=== PATIENT | male | born 1970 | race Caucasian/White ===

== ENCOUNTER 2019-08-17 23:25 | Outpatient (REF) | payer MEDICARE, SELFPAY ==
[2019-08-17 22:57] LABS: Microalb ug/mg Crea 32.6 ug/mg Cr
[2019-08-17 23:15] LABS: ALT 117 U/L (16-63); AST 82 U/L (15-37); Albumin 4.5 g/dL (3.4-5.0); Alkaline Phosphatase 64 U/L (46-116); Anion Gap 11.4 mmol/L (3-11); BUN 12 mg/dL (7-18); Bilirubin, Total 0.6 mg/dL (0.2-1.0); CO2 27.6 mmol/L (21.0-32.0); CREATININE 0.74 mg/dL (0.70-1.30); Calcium 9.7 mg/dL (8.5-10.1); Chloride 101 mmol/L (98-107); Glucose 141 mg/dL (74-106); Potassium 4.4 mmol/L (3.5-5.1); Sodium 140 mmol/L (136-145); Vitamin B12 836 pg/mL (193-986)
[2019-08-18 12:18] LABS: Calculated LDL 60 mg/dL; Cholesterol 152 mg/dL (<200); HDL Cholesterol 42 mg/dL (40-60); Triglyceride 250 mg/dL (<150)
== END 2019-08-17 23:45 ==
LOC: NCHCN 23:25
PROVIDERS: Visit Provider Nurse Practitioner Family
DX: E11.9 Type 2 diabetes mellitus without complications (principal); F10.10 Alcohol abuse, uncomplicated; K76.0 Fatty (change of) liver, not elsewhere classified; E66.9 Obesity, unspecified
CPT/HCPCS: 80053; 80061; 82043; 82570; 82607; 82746

== ENCOUNTER 2020-09-08 15:35 | Outpatient (REF) | payer MEDICARE, SELFPAY ==
[2020-09-08 13:42] LABS: Hemoglobin A1C 7.3 % (<5.7)
[2020-09-08 14:04] LABS: ALT 86 U/L (16-63); AST 39 U/L (15-37); Albumin 4.1 g/dL (3.4-5.0); Alkaline Phosphatase 68 U/L (46-116); BUN 13 mg/dL (7-18); Bilirubin, Total 0.3 mg/dL (0.2-1.0); CREATININE 0.8 mg/dL (0.70-1.30); Calcium 9.1 mg/dL (8.5-10.1); Chloride 100 mmol/L (98-107); Glucose 286 mg/dL (74-106); Potassium 4.3 mmol/L (3.5-5.1); Sodium 136 mmol/L (136-145); Total Protein 7.8 g/dL (6.4-8.2); Vitamin B12 636 pg/mL (193-986)
[2020-09-11 11:54] LABS: Hepatitis C Ab w Rflx HCV PCR Negative (Negative)
== END 2020-09-08 15:55 ==
LOC: NCHCN 15:35
PROVIDERS: Visit Provider Nurse Practitioner Family
DX: E11.9 Type 2 diabetes mellitus without complications (principal); I10 Essential (primary) hypertension; F10.10 Alcohol abuse, uncomplicated; K21.9 Gastro-esophageal reflux disease without esophagitis; Z11.59 Encounter for screening for other viral diseases
CPT/HCPCS: 80053; 86803; 82607; 82746; 83036

== ENCOUNTER 2021-04-05 17:43 | Outpatient (REF) | payer MEDICARE, SELFPAY ==
[2021-04-05 14:29] LABS: Anion Gap 10.9 mmol/L (3-11); BUN 11 mg/dL (7-18); CO2 27.1 mmol/L (21.0-32.0); CREATININE 0.8 mg/dL (0.70-1.30); Calcium 10.1 mg/dL (8.5-10.1); Chloride 104 mmol/L (98-107); Glucose 213 mg/dL (74-106); Potassium 4.4 mmol/L (3.5-5.1); Sodium 142 mmol/L (136-145)
== END 2021-04-05 17:44 | disposition home or self-care (01) ==
LOC: NCHCN 17:43
PROVIDERS: Visit Provider Nurse Practitioner Family
DX: E11.9 Type 2 diabetes mellitus without complications (principal); E66.9 Obesity, unspecified
CPT/HCPCS: 80048

== ENCOUNTER 2022-11-05 16:14 | Outpatient (REF) | payer MEDICARE, SELFPAY ==
[2022-11-05 21:16] LABS: COMMENT (LAB VIEW ONLY) 29.54 mg/dL; Microalb ug/mg Crea 74.8 ug/mg Cr
== END 2022-11-05 16:15 | disposition home or self-care (01) ==
LOC: NCHCN 16:14
PROVIDERS: Visit Provider Nurse Practitioner Family
DX: E11.9 Type 2 diabetes mellitus without complications (principal)
CPT/HCPCS: 82043; 82570

== ENCOUNTER 2023-03-18 08:41 | Outpatient (REF) | payer MEDICARE, SELFPAY ==
[2023-03-18 15:44] LABS: ALT 64 U/L (16-63); AST 25 U/L (15-37); Albumin 3.8 g/dL (3.4-5.0); Alkaline Phosphatase 55 U/L (46-116); Anion Gap 9.1 mmol/L (3-11); BUN 12 mg/dL (7-18); Bilirubin, Total 0.5 mg/dL (0.2-1.0); CO2 25.9 mmol/L (21.0-32.0); CREATININE 0.7 mg/dL (0.70-1.30); Calcium 9.4 mg/dL (8.5-10.1); Calculated LDL 101 mg/dL (<100); Chloride 103 mmol/L (98-107); Cholesterol 190 mg/dL (<200); Glucose 219 mg/dL (74-106); HDL Cholesterol 40 mg/dL (40-60); Potassium 4.6 mmol/L (3.5-5.1); Sodium 138 mmol/L (136-145); Total Protein 7.4 g/dL (6.4-8.2); Triglyceride 247 mg/dL (<150)
== END 2023-03-18 08:42 | disposition home or self-care (01) ==
LOC: NCHCN 08:41
PROVIDERS: PCP Nurse Practitioner Family; Visit Provider Nurse Practitioner Family
DX: E11.9 Type 2 diabetes mellitus without complications (principal)
CPT/HCPCS: 80053; 80061

== ENCOUNTER 2025-06-02 20:09 | Outpatient (REF) | payer MEDICARE, SELFPAY ==
[2025-06-02 19:05] LABS: ALT 81 U/L (16-63); AST 47 U/L (15-37); Albumin 3.9 g/dL (3.4-5.0); Alkaline Phosphatase 60 U/L (46-116); Anion Gap 10.2 mmol/L (3-11); BUN 12 mg/dL (7-18); Bilirubin, Total 0.6 mg/dL (0.2-1.0); CO2 26.8 mmol/L (21.0-32.0); Calcium 9.2 mg/dL (8.5-10.1); Calculated LDL 58 mg/dL (<100); Chloride 99 mmol/L (98-107); Cholesterol 166 mg/dL (<200); Estimated GFR 107.47 (mL/min/1.73m2); Glucose 227 mg/dL (74-106); HDL Cholesterol 40 mg/dL (>or=40); Potassium 4.3 mmol/L (3.5-5.1); Sodium 136 mmol/L (136-145); Total Protein 7.8 g/dL (6.4-8.2); Triglyceride 342 mg/dL (<150); Vitamin B12 749 pg/mL (193-986)
[2025-06-03 18:59] LABS: HIV-1/2 Ag & Ab Screen Negative (Negative)
[2025-06-03 19:12] LABS: Hepatitis C Ab w Rflx HCV PCR Negative (Negative)
== END 2025-06-02 20:10 | disposition home or self-care (01) ==
LOC: NCHCN 20:09
PROVIDERS: PCP Nurse Practitioner Family; Visit Provider Nurse Practitioner Family
DX: E11.9 Type 2 diabetes mellitus without complications (principal); Z11.59 Encounter for screening for other viral diseases; Z11.4 Encounter for screening for human immunodeficiency virus [HIV]
CPT/HCPCS: 80053; 80061; 86803; 87389; 82607